=== PATIENT | female | born 1980 | race Hispanic/Latino ===

== ENCOUNTER 2018-11-16 11:58 | Emergency (ER) | payer MEDICAID, SELFPAY ==
[2018-11-16] MEDS ORDERED: Adacel (T-DAP) 0.5 ML SYRINGE ONE (12:24)
[2018-11-16] MEDS ORDERED: HYDROcodone/Acetaminophen 10/325 mg Tablet ONE (12:24)
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
== END 2018-11-16 14:03 | disposition home or self-care (01) ==
LOC: ERS 11:58
DX: S20.219A Contusion of unspecified front wall of thorax, initial encounter (principal); V89.2XXA Person injured in unspecified motor-vehicle accident, traffic, initial encounter; W22.11XA Striking against or struck by driver side automobile airbag, initial encounter
CPT/HCPCS: 71046; 90471; 90715